=== PATIENT | male | born 1985 | race American Indian/Alaskan Native ===

== ENCOUNTER 2022-04-04 06:02 | Emergency (ER) | payer MEDICAID ==
[2022-04-04 06:06] VITALS: BP 150/84
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
== END 2022-04-04 14:38 | disposition home or self-care (01) ==
LOC: ED 06:02
DX: L73.1 Pseudofolliculitis barbae (principal); T76.21XA Adult sexual abuse, suspected, initial encounter
CPT/HCPCS: 99283

== ENCOUNTER 2022-05-07 23:05 | Emergency (ER) | payer MEDICAID | END 2022-05-08 06:00 | disposition left against medical advice (07) | LOC: ED 23:05 | DX: R45.851 Suicidal ideations (principal); Z53.21 Procedure and treatment not carried out due to patient leaving prior to being seen by health care provider ==

== ENCOUNTER 2022-06-01 00:01 | Emergency (ER) | payer MEDICAID ==
[2022-06-01 00:39] VITALS: BP 121/86
== END 2022-06-01 01:45 | disposition left against medical advice (07) ==
LOC: ED 00:01
DX: R21 Rash and other nonspecific skin eruption (principal); Z53.21 Procedure and treatment not carried out due to patient leaving prior to being seen by health care provider